=== PATIENT | female | born 1955 | race Hispanic/Latino ===

== ENCOUNTER 2019-02-23 16:19 | Emergency (ER) | payer OTHER ==
--- OUTSIDE RECORDS SUMMARY | 2019-02-23 16:22 | XMS REPORT | Clinical Summary ---
Author Author [facility] Organization [facility] Address Unknown Phone Unavailable Care Team Providers Care Design Engineering Intern Name Role Phone System, Provider Not In MD PCP Unavailable Allergies No Known Allergies Medications End Date Status Medication Sig Dispensed Refills Start Date Active metFORMIN (GLUCOPHAGE) Take 500 mg 0 500 mg tablet by mouth 2 (two) times a day with meals. Active Problems Not on file Encounters Care Team Description Date Type Specialty Kenny Whittington DO Tremor (Primary Dx) 03/10/2018 Emergency Emergency Medicine after 02/22/2018 Social History Date Tobacco Use Types Packs/Day Years Used Never Smoker Smokeless Tobacco: Never Used Alcohol Use Drinks/Week oz/Week Comments No Sex Assigned at Date Recorded Not on file Industry Job Start Date Occupation Not on file Not on file Not on file Travel End Travel History Travel Start No recent travel history available. Last Filed Vital Signs Time Taken Vital Sign Reading 03/10/2018 5:15 AM CDT Blood Pressure 161/76 03/10/2018 5:15 AM CDT Pulse 79 03/10/2018 5:15 AM CDT Temperature 36.9 C (98.4 F) 03/10/2018 5:15 AM CDT Respiratory Rate 14 03/10/2018 5:15 AM CDT Oxygen Saturation 100% - Inhaled Oxygen - Concentration - Weight - 03/10/2018 3:44 AM CDT Height 149.9 cm (4' 11") - Body Mass Index - Plan of Treatment Health Maintenance Due Date Last Done Comments CERVICAL CANCER SCREENING 1975 BREAST CANCER SCREENING 2004 COLON CANCER SCREENING 2004 SHINGLES VACCINES (#1) 2004 INFLUENZA VACCINE 07/01/2018 Procedures Comments Procedure Name Priority Date/Time Associated Diagnosis CT HEAD WO CONTRAST STAT 03/10/2018 4:17 AM CDT ECG 12-LEAD Routine 03/10/2018 4:17 AM CDT ZZESTIMATED GFR STAT 03/10/2018 3:55 AM CDT BASIC METABOLIC PANEL STAT 03/10/2018 3:55 AM CDT CREATINE KINASE, TOTAL STAT 03/10/2018 (CPK) 3:55 AM CDT TROPONIN STAT 03/10/2018 3:55 AM CDT HC COMPLETE BLD COUNT STAT 03/10/2018 W/AUTO DIFF 3:55 AM CDT after 02/22/2018 Results * CT Head Wo Contrast (03/10/2018 4:17 AM CDT) Narrative Performed At EXAMINATION: CT HEAD WO CONTRAST RADIANT CLINICAL HISTORY: facial tremors COMPARISON:None TECHNIQUE: Noncontrast enhanced images of the brain were obtained from the skull base to the vertex. Both soft tissue and bone reconstruction algorithms were performed. CT imaging was performed with iterative reconstruction technique and/or automated exposure control to reduce radiation dose. IMPRESSION: No intracranial hemorrhage, mass, mass effect, or herniation. No acute osseous abnormalities. The paranasal sinuses are clear. Periventricular and subcortical white matter hypodensities are seen, compatible with sequelae of chronic small vessel ischemic disease. Age-related volume loss is seen as characterized by prominence of cerebral sulci and ventricular systems. Subcutaneous hematoma is seen of the frontal scalp in the midline. Conclusion: Subcutaneous hematoma is seen of the frontal scalp in the midline. No acute intracranial abnormalities. Chronic age-related changes and sequelae of chronic small vessel ischemic disease. [facility]-[id number] Procedure Note Interface, Radiology Results Incoming - 03/10/2018 4:28 AM CDT EXAMINATION: CT HEAD WO CONTRAST CLINICAL HISTORY: facial tremors COMPARISON: None TECHNIQUE: Noncontrast enhanced images of the brain were obtained from the skull base to the vertex. Both soft tissue and bone reconstruction algorithms were performed. CT imaging was performed with iterative reconstruction technique and/or automated exposure control to reduce radiation dose. IMPRESSION: No intracranial hemorrhage, mass, mass effect, or herniation. No acute osseous abnormalities. The paranasal sinuses are clear. Periventricular and subcortical white matter hypodensities are seen, compatible with sequelae of chronic small vessel ischemic disease. Age-related volume loss is seen as characterized by prominence of cerebral sulci and ventricular systems. Subcutaneous hematoma is seen of the frontal scalp in the midline. Conclusion: Subcutaneous hematoma is seen of the frontal scalp in the midline. No acute intracranial abnormalities. Chronic age-related changes and sequelae of chronic small vessel ischemic disease. [facility]-[id number] Performing Organization Address [facility]/Zipcode Phone Number [facility] [address] [place] [address] * ECG 12 lead (03/10/2018 4:17 AM CDT) Ventricular rate 69 [facility] Atrial rate 69 [facility] [place] interval 136 [facility] QRSD interval 92 [facility] QT interval 450 [facility] QTC interval 482 [facility] P axis 1 67 [facility] QRS axis 1 40 [facility] T wave axis 47 [facility] EKG impression Normal sinus rhythm-Normal [facility] M[facility] ECG-No previous ECGs available- Performing Organization Address [facility] [place] Phone Number [facility] [address] [place] [address] * Estimated GFR (03/10/2018 3:55 AM CDT) GFR Non Af Amer >90 mL/min/1.73 m2 [facility]OLOGY AND GENOMIC MEDICINE GFR Af Amer >90 mL/min/1.73 m2 [facility] OF Comment: PATHOLOGY AND Chronic kidney disease: <60 GENOMIC MEDICINE mL/min/1.73m2 Kidney failure: <15 mL/min/1.73m2 The estimated GFR is calculated from the IDMS-traceable Modification of Diet in Renal Disease Equation. The accuracy of the calculation is poor when the creatinine is normal. Calculated values >90 mL/min/1.73m2 are not reported. This equation has not been validated in children (<18 years), women, the elderly (>70 years), or ethnic groups other than Caucasians and Americans. Specimen Plasma specimen Performing Organization Address City/[facility]/Zipcode Phone Number [facility] OF [facility] [place] [address] PATHOLOGY AND GENOMIC MEDICINE * Troponin (03/10/2018 3:55 AM CDT) Troponin <0.01 0.00 - 0.60 ng/mL [facility] OF Comment: PATHOLOGY AND 0.11 - 1.49 GENOMIC MEDICINE ng/mlMay indicate increased risk of acute coronary syndrome. >=1.5 ng/ml Consistent with acute myocardial infarction. The diagnostic value of a single normal or non-diagnostic result is questionable.Serial samples at 2-6 hour intervals are required to rule out acute myocardial injury. Specimen Plasma specimen Performing Organization Address City/State/Zipcode Phone Number [facility] [address] [place] [address] PATHOLOGY AND GENOMIC MEDICINE * CBC with platelet and differential (03/10/2018 3:55 AM CDT) WBC 5.1 4.2 - 11.0 k/uL [facility] OF PATHOLOGY AND GENOMIC MEDICINE RBC 3.61 (L) 4.04 - 5.86 m/uL [facility] OF PATHOLOGY AND GENOMIC MEDICINE HGB 11.6 11.5 - 15.3 g/dL [facility] OF PATHOLOGY AND GENOMIC MEDICINE HCT 34.5 34.0 - 45.0 % [facility] OF PATHOLOGY AND GENOMIC MEDICINE MCV 95.6 80.0 - 98.0 fL [facility] OF PATHOLOGY AND GENOMIC MEDICINE MCH 32.1 27.0 - 34.0 pg [facility] OF PATHOLOGY AND GENOMIC MEDICINE MCHC 33.6 31.5 - 36.5 g/dL [facility] OF PATHOLOGY AND GENOMIC MEDICINE RDW - SD 48.6 37.0 - 51.0 fL [facility] OF PATHOLOGY AND GENOMIC MEDICINE MPV 9.7 7.4 - 10.4 fL [facility] PATHOLOGY AND GENOMIC MEDICINE Platelet count 141 (L) 150 - 400 k/uL [facility] OF PATHOLOGY AND GENOMIC MEDICINE Nucleated RBC 0.00 /100 WBC [facility] OF PATHOLOGY AND GENOMIC MEDICINE Neutrophils 57.1 36.0 - 66.0 % [facility] OF PATHOLOGY AND GENOMIC MEDICINE Lymphocytes 29.3 24.0 - 44.0 % [facility] OF PATHOLOGY AND GENOMIC MEDICINE Monocytes 10.4 (H) 0.0 - 6.0 % [facility] OF PATHOLOGY AND GENOMIC MEDICINE Eosinophils 2.2 0.0 - 6.0 % [facility] OF PATHOLOGY AND GENOMIC MEDICINE Basophils 0.8 0.0 - 1.2 % [facility] OF PATHOLOGY AND GENOMIC MEDICINE Immature granulocytes 0.2 0.0 - 1.0 % [facility] OF PATHOLOGY AND GENOMIC MEDICINE Specimen Blood Performing Organization Address City/[facility] Phone [facility] [address] [place] [address] PATHOLOGY AND GENOMIC MEDICINE * Creatine kinase, total (CPK) (03/10/2018 3:55 AM CDT) Creatine kinase 106 61 - 224 U/L [facility] OF PATHOLOGY AND GENOMIC MEDICINE Specimen Plasma specimen Performing Organization Address City/[facility] Phone Number [place] [address] [place] [address] PATHOLOGY AND GENOMIC MEDICINE * Basic metabolic panel (03/10/2018 3:55 AM CDT) Sodium 141 135 - 150 mEq/L [facility] OF PATHOLOGY AND GENOMIC MEDICINE Potassium 3.5 3.5 - 5.0 mEq/L [facility] OF PATHOLOGY AND GENOMIC MEDICINE Chloride 109 100 - 109 mEq/L [facility] OF PATHOLOGY AND GENOMIC MEDICINE CO2 26 24 - 32 mmol/L [facility] OF PATHOLOGY AND GENOMIC MEDICINE Anion gap 6 (L) 7 - 15 mEq/L [facility] OF Comment: PATHOLOGY AND Starting from March [facility] , anion gap calculation no longer incorporates potassium. Please note the change. BUN 13 7 - 18 mg/dL [facility] OF PATHOLOGY AND GENOMIC MEDICINE Creatinine 0.4 (L) 0.8 - 1.5 mg/dL [facility] OF PATHOLOGY AND GENOMIC MEDICINE Glucose 123 (H) 65 - 100 mg/dL [facility] OF PATHOLOGY AND GENOMIC MEDICINE Calcium 8.5 (L) 8.6 - 10.7 mg/dL [facility] OF PATHOLOGY AND GENOMIC MEDICINE Specimen Plasma specimen Performing Organization Address City/[facility] Mex[facility]ode Phone Number [place] [address] [place] [address] PATHOLOGY AND GENOMIC MEDICINE after 02/22/2018 Advance Directives Patient has advance care planning documents on file. For more information, [place] contact: Yayo Ortega [address] [place] [address]
--- OUTSIDE RECORDS SUMMARY | 2019-02-23 16:22 | XMS REPORT ---
Author Author [facility] Address Unknown Phone Unavailable Care Team Providers Care Chair Caner Name Role Phone UNKNOWN, REFFERING PP Unavailable Payers Payer Name Policy Type Policy Number Effective Date Expiration Date Problems This patient has no known problems. Allergies, Adverse Reactions, Alerts Allergy Name Allergy Type Status Severity Reaction(s) Onset Date Inactive Date Treating Clinician Comments No Known Allergies DA Active U 2019-01-06 00:00:00 No Known Contrast Allergies DA Active U 2009-03-15 00:00:00 No Known Drug Allergies DA Active U 2009-03-15 00:00:00 No Known Food Allergies DA Active U 2009-03-15 00:00:00 No Known Other Allergies DA Active U 2009-03-15 00:00:00 Medications This patient has no known medications. Encounters Start Date/Time End Date/Time Encounter Type Admission Type Attending Clinicians Care Facility Care Department Encounter ID 2018-02-05 16:32:19 2018-02-05 16:32:[address] [facility] [id number] 2018-02-05 15:58:41 2018-02-05 15:58:[address] [facility] [id number] 2018-02-05 15:56:48 2018-02-05 15:56:[address] [facility] [id number] 2018-02-05 15:47:22 2018-02-05 15:47:22 Outpatient [facility] [id number] 2017-12-01 12:56:31 2017-12-01 00:00:[address] [facility] [id number] 2017-11-30 06:29:32 2017-11-30 06:29:32 Inpatient [facility] [id number] 2017-11-30 02:23:10 2017-11-30 02:23:[address] [facility] [id number] 2017-11-25 00:00:00 2017-11-25 00:00:[address] [facility] [id number] 2017-11-18 14:20:02 2017-11-18 14:20:[address] [facility] [id number] 2017-11-18 13:49:50 2017-11-18 13:49:50 Emergency [facility] [id number] 2017-11-18 13:13:03 2017-11-18 13:13:[address] [facility] [id number] 2017-10-27 00:00:00 2017-10-27 00:00:[address] [facility] [id number] 2017-09-08 00:00:00 2017-09-08 00:00:[address] [facility] [id number] 2017-08-30 13:39:31 2017-08-30 13:39:[address] [facility] [id number] 2017-08-30 10:48:22 2017-08-30 10:48:[address] [facility] [id number] 2017-08-30 10:36:37 2017-08-30 10:36:[address] [facility] [id number] 2017-08-30 10:08:53 2017-08-30 10:08:53 Emergency [facility] [id number] 2017-08-27 13:29:50 2017-08-27 13:29:[address] [facility] [id number] 2017-08-20 00:00:00 2017-08-20 00:00:[address] [facility] [id number] 2017-08-19 16:08:55 2017-08-19 16:08:[address] [facility] [id number] 2017-08-14 00:00:00 2017-08-14 00:00:[address] [facility] [id number] 2017-08-11 09:21:07 2017-08-11 09:21:[address] [facility] [id number] 2017-08-09 14:00:00 2017-08-09 14:00:00 Emergency [facility] [id number] 2017-08-07 21:28:29 2017-08-07 21:28:[address] [facility] [id number] 2017-08-07 21:22:49 2017-08-07 21:22:[address] [facility] [id number] 2017-08-07 21:09:59 2017-08-07 21:09:59 Emergency [facility] [id number] 2017-07-26 17:04:40 2017-07-26 17:04:[address] [facility] [id number] 2017-07-25 07:12:50 2017-07-25 07:12:[address] [facility] [id number] 2017-07-24 22:37:20 2017-07-24 22:37:[address] [facility] [id number] 2017-07-24 18:23:55 2017-07-24 18:23:[address] [facility] [id number] 2017-07-24 18:01:30 2017-07-24 18:01:[address] [facility] [id number] 2017-07-24 16:20:43 2017-07-24 16:20:43 Outpatient [facility] [id number] 2017-07-22 02:28:05 2017-07-22 02:28:[address] [facility] [id number] 2017-07-21 20:25:24 2017-07-21 20:25:[address] [facility] [id number] 2017-07-21 20:01:01 2017-07-21 20:01:01 Emergency [facility] [id number] 2017-06-11 12:29:45 2017-06-11 12:29:[address] [facility] [id number] 2017-05-07 09:31:17 2017-05-07 09:31:[address] [facility] [id number] 2017-05-07 09:29:06 2017-05-07 09:29:[address] [facility] [id number] 2017-04-16 21:49:33 2017-04-16 21:49:[address] [facility] [id number] 2017-04-14 04:30:33 2017-04-14 04:30:[address] [facility] [id number] 2017-04-14 03:15:46 2017-04-14 03:15:[address] [facility] [id number] 2017-04-14 01:41:26 2017-04-14 01:41:26 Emergency [facility] [id number] 2017-04-06 19:13:10 2017-04-06 19:13:10 Emergency [facility] [id number] 2017-03-30 09:23:00 2017-03-30 09:23:00 Emergency [facility] [id number] 2017-03-24 14:02:13 2017-03-24 14:02:[address] [facility] [id number] 2017-03-24 13:50:25 2017-03-24 13:50:[address] [facility] [id number] 2017-03-17 23:48:53 2017-03-17 23:48:53 Emergency [facility] [id number] 2017-03-17 19:20:35 2017-03-17 19:20:[address] [facility] [id number] 2017-03-04 15:20:15 2017-03-04 15:20:[address] [facility] [id number] 2017-02-17 10:52:31 2017-02-17 10:52:[address] [facility] [id number] 2017-02-04 12:43:08 2017-02-04 12:43:[address] [facility] [id number] 2017-01-19 08:08:57 2017-01-19 08:08:[address] [facility] [id number] 2017-01-18 16:59:05 2017-01-18 16:59:[address] [facility] [id number] 2017-01-18 16:09:51 2017-01-18 16:09:51 Outpatient [facility] [id number] Results Test Description Test Time Test Comments Text Results Atomic Results Result Comments GLUBED 2019-01-09 17:05:00 GLUBED (test code=GLUBED) 114 mg/dL 74-106 Performed by certified proof press operator at [facility] [id number] 17:05:00* Test Item Value Reference Range Comments GLUBED (test code=GLUBED) 137 mg/dL 74-106 Performed by certified proof press operator at [facility] [id number] 05:55:00* Test Item Value Reference Range Comments GLUBED (test code=GLUBED) 151 mg/dL 74-106 Performed by certified proof press operator at [facility] BASIC METABOLIC [id number] 05:43:00* Test Item Value Reference Range Comments SODIUM (test code=NA) 143 mmol/L 136-145 POTASSIUM (test code=K) 3.7 mmol/L 3.5-5.1 CHLORIDE (test code=CL) 111.0 mmol/L 98-107 CARBON DIOXIDE (test code=CO2) 23.0 mmol/L 21-32 ANION GAP (test code=GAP) 12.7 10-20 GLUCOSE (test code=GLU) 138 mg/dL 74-106 BLOOD UREA NITROGEN (test code=BUN) 16 mg/dL 7-18 GLOMERULAR FILTRATION RATE (test code=GFR) > 60 mL/min >=60 Estimated GFR by using Modified MDRD formula.Chronic kidney disease is defined as either kidney damageor GFR <60 mL/min/1.73 m2 for >3 months. CREATININE (test code=CREAT) 0.60 mg/dL 0.55-1.02 Note change in reference range due to change in reagent. BUN/CREATININE RATIO (test code=BUN/CREA) 27.9 10-20 CALCIUM (test code=CA) 8.2 mg/dL 8.5-10.1 BASIC METABOLIC [id number] 05:29:00* Test Item Value Reference Range Comments SODIUM (test code=NA) 143 mmol/L 136-145 POTASSIUM (test code=K) 3.7 mmol/L 3.5-5.1 CHLORIDE (test code=CL) 111.0 mmol/L 98-107 CARBON DIOXIDE (test code=CO2) mmol/L 21-32 ANION GAP (test code=GAP) 10-20 GLUCOSE (test code=GLU) mg/dL 74-106 BLOOD UREA NITROGEN (test code=BUN) mg/dL 7-18 GLOMERULAR FILTRATION RATE (test code=GFR) mL/min >=60 CREATININE (test code=CREAT) mg/dL 0.55-1.02 BUN/CREATININE RATIO (test code=BUN/CREA) 10-20 CALCIUM (test code=CA) mg/dL 8.5-10.1 CBC W/AUTO [id number] 05:05:00* Test Item Value Reference Range Comments WHITE BLOOD CELL (test code=WBC) 3.8 K/mm3 4.5-12.5 RED BLOOD CELL (test code=RBC) 3.78 mill/mm3 3.7-5.2 HEMOGLOBIN (test code=HGB) 12.0 gram/dL 11.5-15.5 HEMATOCRIT (test code=HCT) 36.2 % 36.0-46.0 MEAN CELL VOLUME (test code=MCV) 95.8 fL 80-98 MEAN CELL HGB (test code=MCH) 31.7 picogram 27.0-33.0 MEAN CELL HGB CONCETRATION (test code=MCHC) 33.1 gram/dL 33.0-36.0 RED CELL DISTRIBUTION WIDTH (test code=RDW) 12.8 % 11.6-16.2 RED CELL DISTRIBUTION WIDTH SD (test code=RDW-SD) 45.1 fL 37.0-51.0 PLATELET COUNT (test code=PLT) 129 K/mm3 150-450 MEAN PLATELET VOLUME (test code=MPV) 10.0 fL 6.7-11.0 NEUTROPHIL % (test code=NT%) 44.6 % 39.0-69.0 IMMATURE GRANULOCYTE % (test code=IG%) 0.3 % 0.0-5.0 LYMPHOCYTE % (test code=LY%) 38.8 % 25.0-55.0 MONOCYTE % (test code=MO%) 11.2 % 0.0-10.0 EOSINOPHIL % (test code=EO%) 4.3 % 0.0-5.0 BASOPHIL % (test code=BA%) 0.8 % 0.0-1.0 NUCLEATED RBC % (test code=NRBC%) 0.0 % 0-0 NEUTROPHIL # (test code=NT#) 1.68 K/mm3 1.8-7.7 IMMATURE GRANULOCYTE # (test code=IG#) 0.01 x10 3/uL 0-0.03 LYMPHOCYTE # (test code=LY#) 1.46 K/mm3 1.0-5.0 MONOCYTE # (test code=MO#) 0.42 K/mm3 0-0.8 EOSINOPHIL # (test code=EO#) 0.16 K/mm3 0.0-0.5 BASOPHIL # (test code=BA#) 0.03 K/mm3 0.0-0.2 NUCLEATED RBC # (test code=NRBC#) 0.00 K/mm3 0.0-0.1 CBC W/AUTO [id number] 05:00:00* Test Item Value Reference Range Comments WHITE BLOOD CELL (test code=WBC) K/mm3 4.5-12.5 RED BLOOD CELL (test code=RBC) mill/mm3 3.7-5.2 HEMOGLOBIN (test code=HGB) 12.0 gram/dL 11.5-15.5 HEMATOCRIT (test code=HCT) 36.2 % 36.0-46.0 MEAN CELL VOLUME (test code=MCV) fL 80-98 MEAN CELL HGB (test code=MCH) picogram 27.0-33.0 MEAN CELL HGB CONCETRATION (test code=MCHC) gram/dL 33.0-36.0 RED CELL DISTRIBUTION WIDTH (test code=RDW) % 11.6-16.2 RED CELL DISTRIBUTION WIDTH SD (test code=RDW-SD) fL 37.0-51.0 PLATELET COUNT (test code=PLT) K/mm3 150-450 MEAN PLATELET VOLUME (test code=MPV) fL 6.7-11.0 NEUTROPHIL % (test code=NT%) % 39.0-69.0 IMMATURE GRANULOCYTE % (test code=IG%) % 0.0-5.0 LYMPHOCYTE % (test code=LY%) % 25.0-55.0 MONOCYTE % (test code=MO%) % 0.0-10.0 EOSINOPHIL % (test code=EO%) % 0.0-5.0 BASOPHIL % (test code=BA%) % 0.0-1.0 NEUTROPHIL # (test code=NT#) K/mm3 1.8-7.7 LYMPHOCYTE # (test code=LY#) K/mm3 1.0-5.0 MONOCYTE # (test code=MO#) K/mm3 0-0.8 EOSINOPHIL # (test code=EO#) K/mm3 0.0-0.5 BASOPHIL # (test code=BA#) K/mm3 0.0-0.2 [id number] 20:34:00* Test Item Value Reference Range Comments GLUBED (test code=GLUBED) 191 mg/dL 74-106 Performed by certified proof press operator at [facility] [id number] 17:27:00* Test Item Value Reference Range Comments GLUBED (test code=GLUBED) 141 mg/dL 74-106 Performed by certified proof press operator at [facility] [id number] 13:22:00* Test Item Value Reference Range Comments GLUBED (test code=GLUBED) 164 mg/dL 74-106 Performed by certified proof press operator at [facility] PROCALCITONIN (PCT)2019-01-08 05:24:00* Test Item Value Reference Range Comments PROCALCITONIN (PCT) (test code=PROCAL) < 0.05 ng/ml Concentration Interpretation (ng/mL) <0.51 Sepsis is not likely. Local bacterial infection is possible. (LOW RISK for progression to Sepsis) 0.51 - 2.00 Sepsis is possible, but other conditions are known to elevate PCT as well. (MODERATE RISK for progression to Sepsis) > 2.00 Sepsis is likely, unless other causes are known. (HIGH RISK for progression to Severe Sepsis or Septic Shock) 10.00 High likelihood of Severe Sepsis or Septic or higher Shock. *Increased PCT levels may not always be related to systemic bacterial infection.*Low PCT levels do not automatically exclude the presence of bacterial infection.*All results should be interpreted taking into account the patients history. BASIC METABOLIC [id number] 05:08:00* Test Item Value Reference Range Comments SODIUM (test code=NA) 148 mmol/L 136-145 POTASSIUM (test code=K) 4.0 mmol/L 3.5-5.1 CHLORIDE (test code=CL) 114.0 mmol/L 98-107 CARBON DIOXIDE (test code=CO2) 24.0 mmol/L 21-32 ANION GAP (test code=GAP) 14.0 10-20 GLUCOSE (test code=GLU) 121 mg/dL 74-106 BLOOD UREA NITROGEN (test code=BUN) 13 mg/dL 7-18 GLOMERULAR FILTRATION RATE (test code=GFR) > 60 mL/min >=60 Estimated GFR by using Modified MDRD formula.Chronic kidney disease is defined as either kidney damageor GFR <60 mL/min/1.73 m2 for >3 months. CREATININE (test code=CREAT) 0.50 mg/dL 0.55-1.02 Note change in reference range due to change in reagent. BUN/CREATININE RATIO (test code=BUN/CREA) 23.7 10-20 CALCIUM (test code=CA) 8.4 mg/dL 8.5-10.1 CBC W/AUTO [id number] 04:58:00* Test Item Value Reference Range Comments WHITE BLOOD CELL (test code=WBC) 4.5 K/mm3 4.5-12.5 RED BLOOD CELL (test code=RBC) 3.67 mill/mm3 3.7-5.2 HEMOGLOBIN (test code=HGB) 11.3 gram/dL 11.5-15.5 HEMATOCRIT (test code=HCT) 35.5 % 36.0-46.0 MEAN CELL VOLUME (test code=MCV) 96.7 fL 80-98 MEAN CELL HGB (test code=MCH) 30.8 picogram 27.0-33.0 MEAN CELL HGB CONCETRATION (test code=MCHC) 31.8 gram/dL 33.0-36.0 RED CELL DISTRIBUTION WIDTH (test code=RDW) 12.6 % 11.6-16.2 RED CELL DISTRIBUTION WIDTH SD (test code=RDW-SD) 45.0 fL 37.0-51.0 PLATELET COUNT (test code=PLT) 132 K/mm3 150-450 MEAN PLATELET VOLUME (test code=MPV) 10.4 fL 6.7-11.0 NEUTROPHIL % (test code=NT%) 39.2 % 39.0-69.0 IMMATURE GRANULOCYTE % (test code=IG%) 0.4 % 0.0-5.0 LYMPHOCYTE % (test code=LY%) 42.1 % 25.0-55.0 MONOCYTE % (test code=MO%) 14.1 % 0.0-10.0 EOSINOPHIL % (test code=EO%) 3.1 % 0.0-5.0 BASOPHIL % (test code=BA%) 1.1 % 0.0-1.0 NUCLEATED RBC % (test code=NRBC%) 0.0 % 0-0 NEUTROPHIL # (test code=NT#) 1.75 K/mm3 1.8-7.7 IMMATURE GRANULOCYTE # (test code=IG#) 0.02 x10 3/uL 0-0.03 LYMPHOCYTE # (test code=LY#) 1.88 K/mm3 1.0-5.0 MONOCYTE # (test code=MO#) 0.63 K/mm3 0-0.8 EOSINOPHIL # (test code=EO#) 0.14 K/mm3 0.0-0.5 BASOPHIL # (test code=BA#) 0.05 K/mm3 0.0-0.2 NUCLEATED RBC # (test code=NRBC#) 0.00 K/mm3 0.0-0.1 MANUAL DIFF REQUIRED (test code=MDIFF) NO [id number] 20:37:00* Test Item Value Reference Range Comments GLUBED (test code=GLUBED) 121 mg/dL 74-106 Performed by certified proof press operator at [facility] [id number] 16:26:00* Test Item Value Reference Range Comments GLUBED (test code=GLUBED) 198 mg/dL 74-106 Performed by certified proof press operator at [facility] [id number] 11:15:00* Test Item Value Reference Range Comments GLUBED (test code=GLUBED) 159 mg/dL 74-106 Performed by certified proof press operator at [facility] [id number] 07:57:00* Test Item Value Reference Range Comments GLUBED (test code=GLUBED) 92 mg/dL 74-106 Performed by certified proof press operator at [facility] [id number] 07:51:00* Test Item Value Reference Range Comments GLYCOSYLATED HEMOGLOBIN (HA1C) (test code=GLYHGB) 5.9 % HbA1 4.8-6.0 ESTIMATED AVERAGE GLUCOSE (test code=EAG) 123 MG/DL BASIC METABOLIC [id number] 07:38:00* Test Item Value Reference Range Comments SODIUM (test code=NA) 144 mmol/L 136-145 POTASSIUM (test code=K) 3.6 mmol/L 3.5-5.1 CHLORIDE (test code=CL) 112.0 mmol/L 98-107 CARBON DIOXIDE (test code=CO2) 24.0 mmol/L 21-32 ANION GAP (test code=GAP) 11.6 10-20 GLUCOSE (test code=GLU) 113 mg/dL 74-106 BLOOD UREA NITROGEN (test code=BUN) 11 mg/dL 7-18 GLOMERULAR FILTRATION RATE (test code=GFR) > 60 mL/min >=60 Estimated GFR by using Modified MDRD formula.Chronic kidney disease is defined as either kidney damageor GFR <60 mL/min/1.73 m2 for >3 months. CREATININE (test code=CREAT) 0.40 mg/dL 0.55-1.02 Note change in reference range due to change in reagent. BUN/CREATININE RATIO (test code=BUN/CREA) 25.2 10-20 CALCIUM (test code=CA) 8.5 mg/dL 8.5-10.1 BASIC METABOLIC [id number] 07:36:00* Test Item Value Reference Range Comments SODIUM (test code=NA) 144 mmol/L 136-145 POTASSIUM (test code=K) 3.6 mmol/L 3.5-5.1 CHLORIDE (test code=CL) 112.0 mmol/L 98-107 CARBON DIOXIDE (test code=CO2) mmol/L 21-32 ANION GAP (test code=GAP) 10-20 GLUCOSE (test code=GLU) mg/dL 74-106 BLOOD UREA NITROGEN (test code=BUN) mg/dL 7-18 GLOMERULAR FILTRATION RATE (test code=GFR) mL/min >=60 CREATININE (test code=CREAT) mg/dL 0.55-1.02 BUN/CREATININE RATIO (test code=BUN/CREA) 10-20 CALCIUM (test code=CA) mg/dL 8.5-10.1 CBC W/AUTO [id number] 07:14:00* Test Item Value Reference Range Comments WHITE BLOOD CELL (test code=WBC) 4.4 K/mm3 4.5-12.5 RED BLOOD CELL (test code=RBC) 3.69 mill/mm3 3.7-5.2 HEMOGLOBIN (test code=HGB) 11.8 gram/dL 11.5-15.5 HEMATOCRIT (test code=HCT) 35.1 % 36.0-46.0 MEAN CELL VOLUME (test code=MCV) 95.1 fL 80-98 MEAN CELL HGB (test code=MCH) 32.0 picogram 27.0-33.0 MEAN CELL HGB CONCETRATION (test code=MCHC) 33.6 gram/dL 33.0-36.0 RED CELL DISTRIBUTION WIDTH (test code=RDW) 12.7 % 11.6-16.2 RED CELL DISTRIBUTION WIDTH SD (test code=RDW-SD) 44.8 fL 37.0-51.0 PLATELET COUNT (test code=PLT) 126 K/mm3 150-450 MEAN PLATELET VOLUME (test code=MPV) 9.9 fL 6.7-11.0 NEUTROPHIL % (test code=NT%) 47.6 % 39.0-69.0 IMMATURE GRANULOCYTE % (test code=IG%) 0.0 % 0.0-5.0 LYMPHOCYTE % (test code=LY%) 36.4 % 25.0-55.0 MONOCYTE % (test code=MO%) 12.3 % 0.0-10.0 EOSINOPHIL % (test code=EO%) 3.0 % 0.0-5.0 BASOPHIL % (test code=BA%) 0.7 % 0.0-1.0 NUCLEATED RBC % (test code=NRBC%) 0.0 % 0-0 NEUTROPHIL # (test code=NT#) 2.09 K/mm3 1.8-7.7 IMMATURE GRANULOCYTE # (test code=IG#) 0.00 x10 3/uL 0-0.03 LYMPHOCYTE # (test code=LY#) 1.60 K/mm3 1.0-5.0 MONOCYTE # (test code=MO#) 0.54 K/mm3 0-0.8 EOSINOPHIL # (test code=EO#) 0.13 K/mm3 0.0-0.5 BASOPHIL # (test code=BA#) 0.03 K/mm3 0.0-0.2 NUCLEATED RBC # (test code=NRBC#) 0.00 K/mm3 0.0-0.1 MANUAL DIFF REQUIRED (test code=MDIFF) NO CBC W/AUTO [id number] 07:11:00* Test Item Value Reference Range Comments WHITE BLOOD CELL (test code=WBC) K/mm3 4.5-12.5 RED BLOOD CELL (test code=RBC) mill/mm3 3.7-5.2 HEMOGLOBIN (test code=HGB) 11.8 gram/dL 11.5-15.5 HEMATOCRIT (test code=HCT) % 36.0-46.0 MEAN CELL VOLUME (test code=MCV) fL 80-98 MEAN CELL HGB (test code=MCH) picogram 27.0-33.0 MEAN CELL HGB CONCETRATION (test code=MCHC) gram/dL 33.0-36.0 RED CELL DISTRIBUTION WIDTH (test code=RDW) % 11.6-16.2 RED CELL DISTRIBUTION WIDTH SD (test code=RDW-SD) fL 37.0-51.0 PLATELET COUNT (test code=PLT) K/mm3 150-450 MEAN PLATELET VOLUME (test code=MPV) fL 6.7-11.0 NEUTROPHIL % (test code=NT%) % 39.0-69.0 IMMATURE GRANULOCYTE % (test code=IG%) % 0.0-5.0 LYMPHOCYTE % (test code=LY%) % 25.0-55.0 MONOCYTE % (test code=MO%) % 0.0-10.0 EOSINOPHIL % (test code=EO%) % 0.0-5.0 BASOPHIL % (test code=BA%) % 0.0-1.0 NEUTROPHIL # (test code=NT#) K/mm3 1.8-7.7 LYMPHOCYTE # (test code=LY#) K/mm3 1.0-5.0 MONOCYTE # (test code=MO#) K/mm3 0-0.8 EOSINOPHIL # (test code=EO#) K/mm3 0.0-0.5 BASOPHIL # (test code=BA#) K/mm3 0.0-0.2 [id number] 07:07:00* Test Item Value Reference Range Comments TROPONIN-I (test code=TROPI) <0.015 ng/mL 0-0.045 COMMENTS TO LOSS PREVENTION INVESTIGATOR: COLLECT 3 HOURS AFTER PREVIOUS [id number] 02:57:00* Test Item Value Reference Range Comments TROPONIN-I (test code=TROPI) <0.015 ng/mL 0-0.045 COMMENTS TO LOSS PREVENTION INVESTIGATOR: COLLECT 3 HOURS AFTER PREVIOUS SAMPLEURINALYSIS [id number] 21:32:00* Test Item Value Reference Range Comments UA COLOR (test code=COLU) YELLOW YELLOW UA APPEARANCE (test code=APPU) Cloudy CLEAR UA GLUCOSE DIPSTICK (test code=DGLUU) NEGATIVE mg/dL NEGATIVE UA BILIRUBIN DIPSTICK (test code=BILU) NEGATIVE mg/dL NEGATIVE UA KETONE DIPSTICK (test code=KETU) Negative mg/dL NEGATIVE UA SPECIFIC GRAVITY (test code=SGU) 1.011 1.001-1.035 UA BLOOD DIPSTICK (test code=GRZEGORZ) Negative NEGATIVE UA PH DIPSTICK (test code=WENCESLAO) 7.0 5.0-8.0 UA PROTEIN DIPSTICK (test code=PROU) Negative mg/dL NEGATIVE UA UROBILINIOGEN DIPSTICK (test code=URO) 4.0 (2+) mg/dL NEGATIVE UA NITRITE DIPSTICK (test code=QUANG) NEGATIVE NEGATIVE UA LEUKOCYTE ESTERASE W REFLEX (test code=LEUUR) TRACE NEGATIVE UA WBC (test code=WBCU) 0-5 #/HPF 0-5 UA RBC (test code=RBCU) 0-2 #/HPF 0-5 UA EPITHELIAL CELLS (test code=EPIU) FEW per HPF FEW UA BACTERIA (test code=BACU) FEW #/HPF NONE UA AMORPHOUS SEDIMENT (test code=AMORU) FEW #/LPF NONE Urine Source? Clean CatchDRUGS OF ABUSE SCREEN [id number] 21:32:00* Test Item Value Reference Range Comments URN COCAINE (test code=COCAURN) NEGATIVE <300 ng/mL URN CANNABINOIDS (test code=CANNABURN) NEGATIVE <50 ng/mL URN AMPHETAMINE (test code=AMPHETURN) NEGATIVE <1000 ng/mL URN BARBITURATE (test code=BARBITURN) NEGATIVE <200 ng/mL URN BENZODIAZEPINE (test code=BENZOURN) NEGATIVE <200 ng/mL URN OPIATES (test code=OPIATURN) NEGATIVE <300 ng/mL URN PHENCYCLIDINE (PCP) (test code=PHENCURN) NEGATIVE <25 ng/mL URN METHADONE (test code=METHAURN) NEGATIVE <300 ng/mL Urine Source? Clean CatchURINALYSIS [id number] 21:13:00* Test Item Value Reference Range Comments UA COLOR (test code=COLU) YELLOW YELLOW UA APPEARANCE (test code=APPU) Cloudy CLEAR UA GLUCOSE DIPSTICK (test code=DGLUU) NEGATIVE mg/dL NEGATIVE UA BILIRUBIN DIPSTICK (test code=BILU) NEGATIVE mg/dL NEGATIVE UA KETONE DIPSTICK (test code=KETU) Negative mg/dL NEGATIVE UA SPECIFIC GRAVITY (test code=SGU) 1.011 1.001-1.035 UA BLOOD DIPSTICK (test code=GRZEGORZ) Negative NEGATIVE UA PH DIPSTICK (test code=WENCESLAO) 7.0 5.0-8.0 UA PROTEIN DIPSTICK (test code=PROU) Negative mg/dL NEGATIVE UA UROBILINIOGEN DIPSTICK (test code=URO) 4.0 (2+) mg/dL NEGATIVE UA NITRITE DIPSTICK (test code=QUANG) NEGATIVE NEGATIVE UA LEUKOCYTE ESTERASE W REFLEX (test code=LEUUR) TRACE NEGATIVE UA WBC (test code=WBCU) 0-5 #/HPF 0-5 UA RBC (test code=RBCU) 0-2 #/HPF 0-5 UA EPITHELIAL CELLS (test code=EPIU) FEW per HPF FEW UA BACTERIA (test code=BACU) FEW #/HPF NONE UA AMORPHOUS SEDIMENT (test code=AMORU) FEW #/LPF NONE Urine Source? Clean CatchDRUGS OF ABUSE SCREEN [id number] 21:13:00* Test Item Value Reference Range Comments URN COCAINE (test code=COCAURN) <300 ng/mL URN CANNABINOIDS (test code=CANNABURN) <50 ng/mL URN AMPHETAMINE (test code=AMPHETURN) <1000 ng/mL URN BARBITURATE (test code=BARBITURN) <200 ng/mL URN BENZODIAZEPINE (test code=BENZOURN) <200 ng/mL URN OPIATES (test code=OPIATURN) <300 ng/mL URN PHENCYCLIDINE (PCP) (test code=PHENCURN) <25 ng/mL URN METHADONE (test code=METHAURN) <300 ng/mL Urine Source? Clean CatchBASIC METABOLIC [id number] 19:55:00* Test Item Value Reference Range Comments SODIUM (test code=NA) 143 mmol/L 136-145 POTASSIUM (test code=K) 4.3 mmol/L 3.5-5.1 CHLORIDE (test code=CL) 107.0 mmol/L 98-107 CARBON DIOXIDE (test code=CO2) 29.0 mmol/L 21-32 ANION GAP (test code=GAP) 11.3 10-20 GLUCOSE (test code=GLU) 173 mg/dL 74-106 BLOOD UREA NITROGEN (test code=BUN) 17 mg/dL 7-18 GLOMERULAR FILTRATION RATE (test code=GFR) > 60 mL/min >=60 Estimated GFR by using Modified MDRD formula.Chronic kidney disease is defined as either kidney damageor GFR <60 mL/min/1.73 m2 for >3 months. CREATININE (test code=CREAT) 0.70 mg/dL 0.55-1.02 Note change in reference range due to change in reagent. BUN/CREATININE RATIO (test code=BUN/CREA) 25.9 10-20 CALCIUM (test code=CA) 8.9 mg/dL 8.5-10.1 HEPATIC FUNCTION [id number] 19:55:00* Test Item Value Reference Range Comments TOTAL PROTEIN (test code=PROT) 7.8 gram/dL 6.4-8.2 ALBUMIN (test code=ALB) 3.4 g/dL 3.4-5.0 GLOBULIN (test code=GLOB) 4.4 gram/dL 2.7-4.2 ALBUMIN/GLOBULIN RATIO (test code=A/G) 0.8 0.75-1.50 BILIRUBIN TOTAL (test code=BILT) 0.30 mg/dL 0.0-1.0 BILIRUBIN DIRECT (test code=BILD) 0.11 mg/dL 0.0-0.20 SGOT/AST (test code=AST) 23 IUnit/L 15-37 SGPT/ALT (test code=ALT) 24 IUnit/L 12-78 ALKALINE PHOSPHATASE TOTAL (test code=ALKP) 83 IUnit/L 45-117 Note change in reference range due to change in reagent. [id number] 19:55:00* Test Item Value Reference Range Comments TROPONIN-I (test code=TROPI) <0.015 ng/mL 0-0.045 [id number] 19:55:00* Test Item Value Reference Range Comments ACETAMINOPHEN (test code=ACET) < 10 mcg/mL 10-30 A RANGE OF 10-30 mcg/mL IS A THERAPEUTIC RANGE. TOXIC CONCENTRATIONS: >150 mcg/mL AT 4 HOURS AFTER INGESTION >=50 mcg/mL AT 12 HOURS AFTER INGESTION [id number] 19:55:00* Test Item Value Reference Range Comments SALICYLATE (test code=PADMINI) < 1.7 mg/dL 2.8-20.0 [id number] 19:55:00* Test Item Value Reference Range Comments ALCOHOL (test code=ALC) < 3 mg/dL 0.0-3.0 INTERPRETIVE DATA NOTE: POSITIVE SCREENING RESULTS SHOULD BE CONSIDERED PRESUMPTIVE.WHEN COLLECTED FOR MEDICAL PURPOSES ONLY. SPECIMEN WILL NOTBE COLLECTED BY CHAIN OF CUSTODY.IF A CONFIRMATION OF POSITIVE RESULTS IS DESIRED, ACONFIRMATION TEST MUST BE REQUESTED BY THE PHYSICIAN AT ANADDITIONAL CHARGE TO THE PATIENT. [id number] 19:46:00* Test Item Value Reference Range Comments AMMONIA (test code=AMM) 40 umol/L 11-32 BASIC METABOLIC [id number] 19:37:00* Test Item Value Reference Range Comments SODIUM (test code=NA) 143 mmol/L 136-145 POTASSIUM (test code=K) 4.3 mmol/L 3.5-5.1 CHLORIDE (test code=CL) 107.0 mmol/L 98-107 CARBON DIOXIDE (test code=CO2) mmol/L 21-32 ANION GAP (test code=GAP) 10-20 GLUCOSE (test code=GLU) mg/dL 74-106 BLOOD UREA NITROGEN (test code=BUN) mg/dL 7-18 GLOMERULAR FILTRATION RATE (test code=GFR) mL/min >=60 CREATININE (test code=CREAT) mg/dL 0.55-1.02 BUN/CREATININE RATIO (test code=BUN/CREA) 10-20 CALCIUM (test code=CA) mg/dL 8.5-10.1 HEPATIC FUNCTION [id number] 19:37:00* Test Item Value Reference Range Comments TOTAL PROTEIN (test code=PROT) gram/dL 6.4-8.2 ALBUMIN (test code=ALB) g/dL 3.4-5.0 GLOBULIN (test code=GLOB) gram/dL 2.7-4.2 ALBUMIN/GLOBULIN RATIO (test code=A/G) 0.75-1.50 BILIRUBIN TOTAL (test code=BILT) mg/dL 0.0-1.0 BILIRUBIN DIRECT (test code=BILD) mg/dL 0.0-0.20 SGOT/AST (test code=AST) IUnit/L 15-37 SGPT/ALT (test code=ALT) IUnit/L 12-78 ALKALINE PHOSPHATASE TOTAL (test code=ALKP) IUnit/L 45-117 [id number] 19:37:00* Test Item Value Reference Range Comments TROPONIN-I (test code=TROPI) ng/mL 0-0.045 [id number] 19:37:00* Test Item Value Reference Range Comments ACETAMINOPHEN (test code=ACET) mcg/mL 10-30 [id number] 19:37:00* Test Item Value Reference Range Comments SALICYLATE (test code=PADMINI) mg/dL 2.8-20.0 [id number] 19:37:00* Test Item Value Reference Range Comments ALCOHOL (test code=ALC) mg/dL 0-3 CBC W/AUTO [id number] 19:21:00* Test Item Value Reference Range Comments WHITE BLOOD CELL (test code=WBC) 4.4 K/mm3 4.5-12.5 RED BLOOD CELL (test code=RBC) 3.91 mill/mm3 3.7-5.2 HEMOGLOBIN (test code=HGB) 12.2 gram/dL 11.5-15.5 HEMATOCRIT (test code=HCT) 37.7 % 36.0-46.0 MEAN CELL VOLUME (test code=MCV) 96.4 fL 80-98 MEAN CELL HGB (test code=MCH) 31.2 picogram 27.0-33.0 MEAN CELL HGB CONCETRATION (test code=MCHC) 32.4 gram/dL 33.0-36.0 RED CELL DISTRIBUTION WIDTH (test code=RDW) 12.9 % 11.6-16.2 RED CELL DISTRIBUTION WIDTH SD (test code=RDW-SD) 45.8 fL 37.0-51.0 PLATELET COUNT (test code=PLT) 150 K/mm3 150-450 MEAN PLATELET VOLUME (test code=MPV) 9.9 fL 6.7-11.0 NEUTROPHIL % (test code=NT%) 53.3 % 39.0-69.0 IMMATURE GRANULOCYTE % (test code=IG%) 0.5 % 0.0-5.0 LYMPHOCYTE % (test code=LY%) 31.7 % 25.0-55.0 MONOCYTE % (test code=MO%) 12.2 % 0.0-10.0 EOSINOPHIL % (test code=EO%) 1.6 % 0.0-5.0 BASOPHIL % (test code=BA%) 0.7 % 0.0-1.0 NUCLEATED RBC % (test code=NRBC%) 0.0 % 0-0 NEUTROPHIL # (test code=NT#) 2.33 K/mm3 1.8-7.7 IMMATURE GRANULOCYTE # (test code=IG#) 0.02 x10 3/uL 0-0.03 LYMPHOCYTE # (test code=LY#) 1.38 K/mm3 1.0-5.0 MONOCYTE # (test code=MO#) 0.53 K/mm3 0-0.8 EOSINOPHIL # (test code=EO#) 0.07 K/mm3 0.0-0.5 BASOPHIL # (test code=BA#) 0.03 K/mm3 0.0-0.2 NUCLEATED RBC # (test code=NRBC#) 0.00 K/mm3 0.0-0.1 MANUAL DIFF REQUIRED (test code=MDIFF) NO CBC W/AUTO [id number] 19:20:00* Test Item Value Reference Range Comments WHITE BLOOD CELL (test code=WBC) K/mm3 4.5-12.5 RED BLOOD CELL (test code=RBC) mill/mm3 3.7-5.2 HEMOGLOBIN (test code=HGB) 12.2 gram/dL 11.5-15.5 HEMATOCRIT (test code=HCT) 37.7 % 36.0-46.0 MEAN CELL VOLUME (test code=MCV) fL 80-98 MEAN CELL HGB (test code=MCH) picogram 27.0-33.0 MEAN CELL HGB CONCETRATION (test code=MCHC) gram/dL 33.0-36.0 RED CELL DISTRIBUTION WIDTH (test code=RDW) % 11.6-16.2 RED CELL DISTRIBUTION WIDTH SD (test code=RDW-SD) fL 37.0-51.0 PLATELET COUNT (test code=PLT) K/mm3 150-450 MEAN PLATELET VOLUME (test code=MPV) fL 6.7-11.0 NEUTROPHIL % (test code=NT%) % 39.0-69.0 IMMATURE GRANULOCYTE % (test code=IG%) % 0.0-5.0 LYMPHOCYTE % (test code=LY%) % 25.0-55.0 MONOCYTE % (test code=MO%) % 0.0-10.0 EOSINOPHIL % (test code=EO%) % 0.0-5.0 BASOPHIL % (test code=BA%) % 0.0-1.0 NEUTROPHIL # (test code=NT#) K/mm3 1.8-7.7 LYMPHOCYTE # (test code=LY#) K/mm3 1.0-5.0 MONOCYTE # (test code=MO#) K/mm3 0-0.8 EOSINOPHIL # (test code=EO#) K/mm3 0.0-0.5 BASOPHIL # (test code=BA#) K/mm3 0.0-0.2 - XR CHEST 1 [id number] 18:36:00 FAX: Reza Polanco MD [phone] [place]: St: PRE Name: JAZZ JACINTO [facility] : [birth year] Age/S: 63/F [address] [facility] Unit #: [id number] Loc: [place] [address] Phys: Reza Polanco MD Acct: [id number] Dis Date: Status: PRE ER PHONE #: [phone] Exam Date: 01/06/2019 1835 FAX #: [phone] Reason: Altered Mental Status EXAMS: CPT CODE: [id number] XR CHEST 1 V 96813 REASON FOR EXAM: Altered M ental Status EXAM ORDER DATE: 01/06/2019 6:06 PM Order ing Bety: Reza Polanco MD PROCEDURE: - XR CHEST 1 V COMPARISON: FINDINGS: Portable AP frontal view of the chest ob tained at 6:32 PM shows clear lungs. There is no evidence of consolidation . There is no evidence of effusion. The heart size is within normal limits . Pulmonary vasculatures are unremarkable. IMPRESSION: No active disease. at 1836 Reported and signed by: Nilton Santos M.D. CC: Reza Polanco MD Technol ogist: Osmany Oh RTEzraR Trnscrd Date/Time/ By: 01/06/2019 (1835) : By: Zach Orig Print D/T: S: 01/06/2019 (1 839) PAGE 1 Signed Report - CT C-SPINE W/O [id number] 18:35:00 Name: JAZZ WEBER [facility] : 1955 Age/S: 63 / F [address] [facility] Unit #: [id number] Loc: [place] [address] Phys: Eulalio Polanco MD Acct: [id number] Di s Date: Status: PRE ER PHONE #: Exam Date: 01/06/20191817 FAX #: Reason: Neck Pain EXAMS: CPT CODE: [id number] CT C-SPINE W/O CONTRAST 72477 REASON FOR EXAM: Neck Pain EXAM ORDER DATE: 01/06/2019 6:06 PM Ordering Bety: Reza Polanco MD PROCEDURE: - CT C-SPINE W/O CONTRAST FINDINGS: CT images of the cervical spine were obtained without IV contrast at 2.5mm. Reconstructed coronal and sagittal images were also provided. Dose reduction techniques were applied The osseous stru ctures are intact. The central canal is patent. Mil d narrowing of C5-6 disc space IMPRESSION: Degenerative changes and disc disease most prominent at C5-6. Dellai angela Signed by Bety Santos on 01/06/2019 at 1835 Repor rola and signed by: Nilton Santos M.D. CC: Reza Polanco MD Technologist:Evelyn Kulkarni RT(R); DENISE Jewell CTDI: DLP: Trnscb Date/Time: 01/06/2019 (1834) Zach Orig Print D/T: S: 01/06/2019 (1837) CTDI: DLP: PAGE 1 Signed Report - CT HEAD/BRAIN W/O [id number] 18:20:00 Name: JAZZ WEBER [facility] : 1955 Age/S: 63 / F [address] Unit #: [id number] Loc: [place] [address] Phys: Reza Polanco MD Acct: [id number] Dis Date: Status: PRE ER PHONE #: [phone] Exam Date: 01/06/2019 181 FAX #: [phone] Reason: Altered Mental Status EXAMS: CPT CODE: [id number] CT HEAD/BRAIN W/O CONT 59874 REASON FOR EXAM: Altered Mental Status EXAM ORDER DATE: 01/06/2019 6:06 PM Ordering Bety: Reza Polanco MD PROCEDURE: - CT HEAD/BRAIN W/O CONT COMPARISON: FINDINGS: CT images of the brain were obtained without IV contrast. Dose reduction techniques were applied. The brain parenchyma is within normal limits. The irvera-white matter delineation is unremarkable. The ventricles, cisterns, and sulci are unremarkable. There is no evidence of hemorrhage, mass, mass effect. There is no evidence of acute or old infarct. The calvarium is intact. IMPRESSION: Unremarkable brain. at 1820 Reported and signed by: Nilton Santos M.D. CC: Reza Polanco MD Technologist:Evelyn Kulkarni RT(R); DENISE Jewell CTDI: DLP: Trnscb Date/Time: 01/06/2019 (1819) t.SDR.VTL Orig Print D/T: S: 01/06/2019 (1822) CTDI: DLP: PAGE 1 Signed Report XR HIP 2+V, UNI.-[id number] 16:20:05CLINICAL INFORMATION: Trauma. Right hip pain.Dictation Location: R 16Comparison: No priors.Findings: Single frontal view of the pelvis submitted with internal andexternally rotated views of the right hip.The pelvic ring appears intact. Hip joint spaces appear symmetric. SIjoints intact. Internal and externally rotated views of the right hipshow no apparent abnormality.Impression: No acute finding.CT HEAD OR BRAIN WO [id number] 15:25:00CLINICAL INFORMATION: Head trauma. Headaches.Dictation Location: R 16COMPARISON: No prior available.Findings:CT head was done in the usual fashion. Appropriate dose reduction andimage optimization techniques were used. DLP 955 mGy-cm. There is no hydrocephalus or significant atrophy. No midline shift,mass effect, hemorrhage, or abnormal extra-axial fluid collection isidentified. The skull base and cranium appear unremarkable on the bonewindows.IMPRESSION: Unremarkable skull and brain. No acute finding.XR ELBOW [id number] 14:37:35CLINICAL INFORMATION: Pain.Dictation Location: R 16Comparison: No priors.Findings: Frontal and lateral views show no acute fracture ordestructive bone lesion. No dislocation or foreign body. No apparentsoft tissue swelling.Impression: Unremarkable.XR SHOULDER 2+V.[id number] 14:34:16CLINICAL INFORMATION: Pain.Dictation Location: R 16Comparison: No priors.Findings: Internal and externally rotated and transscapular views of theshoulder show no fracture, dislocation or destructive bone lesion. Thereis widening at the acromioclavicular joint with apparent capsularhypertrophy. No radiopaque foreign body is noted.Impression:1. Changes of the acromioclavicular joint could indicate chronic sprain,possibly with instability. Perhaps follow-up with weightbearing viewscould be helpful.2. Otherwise no acute finding.
--- NOTE | 2019-02-23 17:16 | Diagnostic Imaging Report ---
EXAMINATION: Head CT HISTORY: Status post fall, head trauma, abrasion to forehead, head pain COMPARISON: None. TECHNIQUE: Multidetector axial images were obtained without contrast from the foramen magnum to the vertex . The images were reconstructed using brain and bone algorithms. Thin section brain images were reformatted into coronal and sagittal planes. Image quality: Motion/streaking artifact limits the evaluation of the skull base and posterior cranial fossa. Dose modulation, iterative reconstruction, and/or weight based adjustment of the mA/kV was utilized to reduce the radiation dose to as low as reasonably achievable. FINDINGS: Parenchyma: 1. No abnormal densities. 2. No mass or hemorrhage. No CT evidence of acute territorial vascular insult. Extra-axial spaces:No abnormal density. No extra-axial fluid collections Brain volume: Normal for age. Ventricles: No hydrocephalus or displacement. Arteries: No density suggestive of thrombus. Dural sinuses: No abnormal density. Extra-axial spaces: No abnormal density. Foramen magnum: No mass, Chiari malformation, or basilar invagination. Sella: No obvious mass. Paranasal/mastoid sinuses: Imaged portions unremarkable. Skull/Scalp: No lytic or blastic lesions. Left forehead soft tissue swelling/abrasion without fractures. IMPRESSION: 1. No acute posttraumatic intracranial hemorrhage. 2. Left forehead soft tissue swelling/abrasion without underlying fractures. Signed by: Dr. Alma Rosa Byrne M.D. on 02/23/2019 5:12 PM
--- NOTE | 2019-02-23 18:33 | Diagnostic Imaging Report ---
Left complete knee. CPT CODE: 14688. INDICATION: Fall, pain COMPARISON: None FINDINGS: The bones are diffusely demineralized. No evidence of acute fracture or dislocation. Minimal medial compartment narrowing. No joint effusion. The medial soft tissues of the knee are prominent. No radiopaque foreign bodies. IMPRESSION: No osseous injury or joint effusion. Signed by: Dr. Debora Elizabeth MD on 02/23/2019 6:29 PM
--- NOTE | 2019-02-23 18:37 | Diagnostic Imaging Report ---
Elbow, Complete, right CPT code: 66863 History: Fall Technique: Three views of the right elbow were performed. Findings: The osseous structures are well-developed and mineralized without fracture, dislocation, focal osseous lesion. No evidence of elbow effusion. No radiopaque foreign bodies in the soft tissues. IMPRESSION: No acute traumatic pathology. Signed by: Dr. Debora Elizabeth MD on 02/23/2019 6:34 PM
[2019-02-23 22:50] VITALS: BP 146/90
[2019-02-23] MEDS ORDERED: BACITRACIN ZINC 0.9GM TP ONE (23:00)
== END 2019-02-23 23:24 | disposition home or self-care (01) ==
LOC: ER 16:19
DX: S00.81XA Abrasion of other part of head, initial encounter (principal); M25.521 Pain in right elbow; M25.562 Pain in left knee; M25.461 Effusion, right knee; W01.0XXA Fall on same level from slipping, tripping and stumbling without subsequent striking against object, initial encounter; Y92.008 Other place in unspecified non-institutional (private) residence as the place of occurrence of the external cause
CPT/HCPCS: 70450; 99284